=== PATIENT | male | born 1985 | race Caucasian/White ===

== ENCOUNTER 2022-10-03 03:24 | Inpatient (IN) | payer MEDICAID ==
[~2022-10-03] VITALS: Ht 175.3 cm; Wt 122.5 kg
[2022-10-03 03:30] VITALS: BP 125/88
--- NOTE | 2022-10-03 03:32 | NUR ---
to bed 2
--- NOTE | 2022-10-03 03:40 | NUR ---
Patient resting in bed, A/Ox4, chest rise and fall symmetrical, no s/s of distress, patient on monitor.
[2022-10-03] MEDS ORDERED: ENOXAPARIN 100 MG/ML SYR SUBQ ONE (03:55)
[2022-10-03] MEDS ORDERED: ASPIRIN 325 MG TAB PO ONE (03:55)
[2022-10-03] MEDS ORDERED: NITROGLYCERIN 2% 1 GM PKT TP ONE (03:55)
[2022-10-03] MEDS ORDERED: ONDANSETRON 4 MG/2 ML VIAL IVP ONE (03:55)
[2022-10-03] MEDS ORDERED: MORPHINE SULFATE 4 MG/ML SYR IVP ONE (03:55)
[2022-10-03] MEDS ORDERED: METOPROLOL 5 MG/5 ML VIAL IVP ONE (03:55)
--- NOTE | 2022-10-03 05:12 | NUR ---
Patient resting in bed, A/Ox4, chest rise and fall symmetrical, no s/s of distress, patient on monitor.
[2022-10-03] MEDS ORDERED: APIX5TAB PO (05:58)
[2022-10-03] MEDS ORDERED: PRON INH (05:58)
[2022-10-03] MEDS ORDERED: SYN.05 PO (05:58)
[2022-10-03] MEDS ORDERED: ACET-8905 PO (05:58)
[2022-10-03] MEDS ORDERED: SULF-58 PO (05:58)
[2022-10-03] MEDS ORDERED: ATOR20TA PO (05:58)
[2022-10-03] MEDS ORDERED: POTA10TA70 PO (05:58)
[2022-10-03] MEDS ORDERED: FURO-570 PO (05:58)
[2022-10-03] MEDS ORDERED: BUDE1AER2 IH (05:58)
[2022-10-03] MEDS ORDERED: DAPA10TA PO (05:58)
--- NOTE | 2022-10-03 05:59 | NUR ---
BELONGINGS LIST DONE.
--- NOTE | 2022-10-03 06:00 | NUR ---
Patient resting in bed, A/Ox4, chest rise and fall symmetrical, no c/o pain or s/s of distress, patient on monitor
[2022-10-03 06:50] LABS: BASOPHILS # (AUTO) 0.2 K/uL (0.00-0.22); EOSINOPHILS # (AUTO) 0.7 K/uL (0-0.4); EOSINOPHILS % (AUTO) 4.6 % (0.0-4.0); HEMATOCRIT 39.5 % (36-52); HEMOGLOBIN 12.6 g/dL (12.0-18.0); LYMPHOCYTES # (AUTO) 3.6 K/uL (2.0-11.5); LYMPHOCYTES % (AUTO) 22.3 % (20.5-51.1); MEAN CORPUSCULAR HEMOGLOBIN 23 pg (27-31); MEAN CORPUSCULAR HGB CONC 32 g/dL (33-37); MEAN CORPUSCULAR VOLUME 72.3 fL (80-94); MONOCYTES # (AUTO) 1.4 K/uL (0.8-1.0); MONOCYTES % (AUTO) 8.5 % (1.7-9.3); NEUTROPHILS # (AUTO) 10.2 K/uL (1.8-7.7); NEUTROPHILS % (AUTO) 63.6 % (42.2-75.2); PLATELET COUNT (AUTO) 362 K/uL (140-450); RED BLOOD CELL COUNT(AUTO) 5.46 MIL/uL (4.20-6.10); RED CELL DISTRIBUTION WIDTH 19.8 % (11.6-13.7)
[2022-10-03 07:03] LABS: ALBUMIN 3.2 g/dL (3.4-5.0); ANION GAP 15.4 (8-16); CARBON DIOXIDE 21.7 mmol/L (21-32); CREATININE 1.1 mg/dL (0.6-1.3); POTASSIUM 4.1 mmol/L (3.5-5.1); TOTAL BILIRUBIN 0.7 mg/dL (0.0-1.0)
[2022-10-03 07:24] LABS: BARBITURATE, URINE NEGATIVE ng/ml (NEG <=200); BENZODIAZEPINE, URINE NEGATIVE ng/mL (NEG <=200); CANNABINOID, URINE NEGATIVE ng/mL (NEG <=50); COCAINE, URINE NEGATIVE ng/mL (NEG <=300); OPIATE, URINE POSITIVE ng/mL (NEG <=2000); PHENCYCLIDINE SCREEN,URINE NEGATIVE ng/mL (NEG <=25)
--- NOTE | 2022-10-03 07:27 | NUR ---
Received report from Kevin. LINDO. Assumed care at this time.
--- NOTE | 2022-10-03 07:29 | NUR ---
Change of shift report given to AM shift nurse Christiano LINDO. AM shift nurse Christiano RN verbalized understanding of report, no further questions.
[2022-10-03] MEDS ORDERED: POTASSIUM CHLORIDE 10 MEQ TABER PO PRN (09:15)
[2022-10-03] MEDS ORDERED: FUROSEMIDE 40 MG TAB PO SCH (09:15)
[2022-10-03] MEDS ORDERED: HYDROcodone/APAP 7.5/325 MG 1 TAB PO PRN (09:15)
[2022-10-03] MEDS ORDERED: ONDANSETRON 4 MG/2 ML VIAL IM/IVP PRN (09:15)
[2022-10-03] MEDS ORDERED: FUROSEMIDE 20 MG/2 ML VIAL IVP SCH (09:15)
[2022-10-03] MEDS ORDERED: guaiFENesin DM 200/20 MG-10 ML 10 ML UDC PO PRN (09:15)
[2022-10-03] MEDS ORDERED: ZOLPIDEM 5 MG TAB PO PRN (09:15)
[2022-10-03] MEDS ORDERED: DEXTROSE 50% 50 ML SYR IVP PRN (09:15)
[2022-10-03] MEDS ORDERED: ACETAMINOPHEN 325 MG TAB PO PRN (09:15)
[2022-10-03] MEDS ORDERED: LEVOTHYROXINE 0.05 MG TAB PO SCH (09:15)
[2022-10-03] MEDS ORDERED: DOCUSATE SODIUM 100 MG GELCAP PO PRN (09:15)
[2022-10-03] MEDS: POTASSIUM CHLORIDE 10 MEQ TABER PO SCH (09:50)
[2022-10-03] MEDS: ATORVASTATIN 20 MG TAB PO SCH (09:52)
[2022-10-03 09:54] LABS: CHOL/HDL RATIO 4.3 (1-4.5); FREE T4 (FREE THYROXINE) 1.16 ng/dL (0.76-1.46); MAGNESIUM 2.1 mg/dL (1.8-2.4); PHOSPHORUS 4.9 mg/dL (2.5-4.9); THYROID STIMULATING HORMONE 16.65 uIU/mL (0.34-3.74)
[2022-10-03 10:00] VITALS: BP 125/85
--- NOTE | 2022-10-03 10:00 | NUR ---
PT TRANSPORTED FROM ER TO MST UNIT VIA GURNEY BY BELGICA CAMPBELL. PT AWAKE, ABLE TO MAKE NEEDS KNOWN. AMBULATORY. ATTACHED TO NUCLEAR PHYSICS TEACHER. RESPIRATIONS EVEN AND UNLABORED ON RA. PT DENIES PAIN BUT STATED THAT HE FELT BLOATED. V/S WAS TAKEN. MRSA SWAB DONE. PT ORIENTED TO ROOM , UNIT AND ROUTINE. URINAL WAS GIVEN. INITIAL ASSESSMENT WAS DONE. NOTED OPEN WOUND ON RIGHT ABDOMEN, PHOTO TAKEN AND MEASURED. CALL LIGHT WITHIN REACH. SAFETY PRECAUTIONS IN PLACE.
--- NOTE | 2022-10-03 10:00 | NUR ---
Patient's Plan of Care was discussed and reviewed with DRILL OPERATOR: KECIA MUSTAFA
--- NOTE | 2022-10-03 10:00 | NUR ---
Patient will be admitted to care of Dr. Khan. Admited to TELE. Will go to room 112A. Belongings list completed. Report to BELGICA Wyatt.
[2022-10-03 10:02] LABS: PROTHROMBIN TIME 12.3 secs (10.8-13.4)
--- NOTE | 2022-10-03 10:40 | NUR ---
IV ABX ADMINISTERED BY BELGICA LA. NO ADVERSE REACTION NOTED.
[2022-10-03 10:44] LABS: APPEARANCE,URINE CLEAR (CLEAR); BILIRUBIN,URINE NEGATIVE (NEGATIVE); BLOOD, URINE 2+ (NEGATIVE); COLOR,URINE YELLOW (YELLOW); LEUKOCYTE ESTERASE ,URINE NEGATIVE (NEGATIVE); NITRITE, URINE NEGATIVE (NEGATIVE); UGLUCOSE 3+ (NEGATIVE)
[2022-10-03 11:00] LABS: RBC,URINE 0-5 /HPF (0-5)
[2022-10-03] MEDS: BLOOD GLUCOSE MONITORING 1 DEV DEV FS SCH ×3 (12:18→21:44)
[2022-10-03] MEDS: INSULIN LISPRO SLIDING SCALE 100 UNITS/ML VIAL SUBQ PRN (12:18)
--- NOTE | 2022-10-03 12:20 | NUR ---
BLOOD SUGAR CHECK DONE. SLIDING SCALE INSULIN ADMINISTERED.
--- NOTE | 2022-10-03 14:17 | NUR ---
PT HOME MED ADDY BROUGHT TO PHARMACY. STICKER ATTACHED TO PT'S CHART.
[2022-10-03 16:00] VITALS: BP 123/94
[2022-10-03] MEDS: NITROGLYCERIN 0.4 MG TAB SL PRN ×3 (16:11→16:22)
--- NOTE | 2022-10-03 16:14 | NUR ---
ECHO DONE. EJ<10% PER CLASSIFICATIONS OFFICER CC/CM. DR OLVERA AND PIETER MADE AWARE.
--- NOTE | 2022-10-03 16:27 | NUR ---
PT COMPLAINED OF 9/10 CHEST PAIN, NON-RADIATING. UNRELIEVED BY NITROGLYCERIN 3X. MD WAS INFORMED. AWAITING FOR RESPONSE. V/S STABLE. PT ALERT, VERBALLY RESPONSIVE.
[2022-10-03] MEDS ORDERED: MORPHINE SULFATE 4 MG/ML SYR IVP SCH (16:40)
--- NOTE | 2022-10-03 16:45 | NUR ---
RECEIVED ORDER FROM DR STAPLETON. REPEAT TROPONIN AND ONE TIME MORPHINE. NO INSULIN COVERAGE FOR BS 93.
[2022-10-03] MEDS: LEVOTHYROXINE 0.05 MG TAB PO SCH (17:41)
[2022-10-03] MEDS: FUROSEMIDE 40 MG/4 ML VIAL IVP SCH (17:41)
--- NOTE | 2022-10-03 17:42 | NUR ---
PT STILL COMPLAINING OF CHEST PAIN 05/16. PRN MORPHINE GIVEN BY BELGICA POE ORDERED. Addendum: 10/03/22 at 1816 by Edmundo JENNINGSN V/S WITHIN NORMAL LIMITS.
--- NOTE | 2022-10-03 19:34 | NUR ---
RECEIVED ENDORSEMENT FROM DAY SHIFT NURSE FOR CONTINUITY OF CARE. PT IS AWAKE, ALERT AND VERBALLY RESPONSIVE. IS AT BED SITE. PT IS ON CARDIAC DIET. IV SALINE LOCK IS INTACT AND IV SITE IS ON RIGHT AC 18G, INTACT AND PATENT. PT DENIES OF PAIN AT THIS TIME.
--- NOTE | 2022-10-03 19:35 | NUR ---
ENDORSED PT TO BELGICA SZYMANSKI FOR CONTINUITY OF CARE. ALL NEEDS MET THROUGHOUT SHIFT. PT IN STABLE CONDITION.
[2022-10-03 20:00] VITALS: BP 119/82
[2022-10-03] MEDS ORDERED: METOPROLOL 25 MG TAB PO SCH (21:00)
--- NOTE | 2022-10-03 21:44 | NUR ---
BLOOD SUGAR CHECKED = 145, NO SLIDING SCALE COVERAGE, NO INSULIN NEEDED.
[2022-10-03] MEDS: APIXABAN 2.5 MG TAB PO SCH (21:47)
--- NOTE | 2022-10-03 22:20 | NUR ---
PT COMPLAINTS OF CHEST PAIN AT MIDDLE OF THE CHEST AND STOMACH PAIN 05/16. PT ALSO COMPLAINTS OF STOMACH BLOATED. REPORTED TO DR. PIETER MD ORDER MORPHINE IVP 2MG Q4H PRN. DR. STAPLETON ALSO STATED WILL ASSESS FOR STOMACH BLOATED TOMORROW AM.
--- NOTE | 2022-10-03 22:45 | NUR ---
PT IS SLEEPING, NO FACIAL GRIMACING AT THIS TIME.
--- NOTE | 2022-10-03 23:30 | NUR ---
CHECK VITAL SIGNS WHILE PT CLOSING HIS EYES. PT DENIES OF PAIN, NO PAIN MEDICATION ADMINISTERED.
[2022-10-04] VITALS: BP_SYST 119; BP_SYST 125; BP_DIAS 76; BP_DIAS 82
[2022-10-04 04:00] VITALS: BP 113/83
[2022-10-04] MEDS: MORPHINE SULFATE 2 MG/ML SYR IVP PRN ×4 (04:15→21:40)
[2022-10-04] MEDS: LEVOTHYROXINE 0.05 MG TAB PO SCH (06:30)
[2022-10-04 06:38] LABS: BASOPHILS # (AUTO) 0.2 K/uL (0.00-0.22); BASOPHILS % (AUTO) 1.6 % (0.0-2.0); EOSINOPHILS # (AUTO) 0.5 K/uL (0-0.4); HEMOGLOBIN 11.5 g/dL (12.0-18.0); LYMPHOCYTES # (AUTO) 2.6 K/uL (2.0-11.5); LYMPHOCYTES % (AUTO) 20.4 % (20.5-51.1); MEAN CORPUSCULAR HEMOGLOBIN 23 pg (27-31); MEAN CORPUSCULAR HGB CONC 32 g/dL (33-37); MEAN CORPUSCULAR VOLUME 70.6 fL (80-94); MONOCYTES % (AUTO) 8.1 % (1.7-9.3); NEUTROPHILS # (AUTO) 8.4 K/uL (1.8-7.7); NEUTROPHILS % (AUTO) 65.9 % (42.2-75.2); PLATELET COUNT (AUTO) 322 K/uL (140-450); RED BLOOD CELL COUNT(AUTO) 5.09 MIL/uL (4.20-6.10); RED CELL DISTRIBUTION WIDTH 19.6 % (11.6-13.7); WHITE BLOOD COUNT (AUTO) 12.7 K/uL (4.8-10.8)
[2022-10-04 07:13] LABS: ANION GAP 14.4 (8-16); CARBON DIOXIDE 22.2 mmol/L (21-32); CREATININE 1.1 mg/dL (0.6-1.3); POTASSIUM 3.6 mmol/L (3.5-5.1)
--- NOTE | 2022-10-04 07:45 | NUR ---
BLOOD SUGAR CHECKED = 106, NO SLIDING SCALE COVERAGE, NO INSULIN NEEDED.
[2022-10-04] MEDS: BLOOD GLUCOSE MONITORING 1 DEV DEV FS SCH ×4 (07:52→21:10)
[2022-10-04 08:00] VITALS: BP 121/82
[2022-10-04] MEDS ORDERED: NON-FORMULARY ITEM (Dapagliflozin Propanediol (Farxiga) 10 MG) PO SCH (09:00)
[2022-10-04 09:06] LABS: T4 (THYROXINE) 7.3 ug/dL (4.5-12.0)
--- NOTE | 2022-10-04 09:23 | NUR ---
PATIENT HAS BEEN SCREENED AND CATEGORIZED HIGH NUTRITION RISK. PATIENT WILL BE SEEN WITHIN 1-2 DAYS OF ADMISSION. 10/03/22-10/05/[address]
[2022-10-04] MEDS: FUROSEMIDE 40 MG/4 ML VIAL IVP SCH ×2 (09:31→17:17)
[2022-10-04] MEDS: ECOTRIN 81 MG TABEC PO SCH (09:32)
[2022-10-04] MEDS: ATORVASTATIN 20 MG TAB PO SCH (09:32)
[2022-10-04] MEDS: APIXABAN 2.5 MG TAB PO SCH ×2 (09:33→21:13)
[2022-10-04] MEDS: FARXIGA 10 MG PO SCH (09:34)
[2022-10-04] MEDS: POTASSIUM CHLORIDE 10 MEQ TABER PO SCH (09:34)
[2022-10-04] MEDS: PANTOPRAZOLE 40 MG TABEC PO SCH (09:35)
[2022-10-04] MEDS: INSULIN LISPRO SLIDING SCALE 100 UNITS/ML VIAL SUBQ PRN (11:21)
[2022-10-04 12:00] VITALS: BP 124/79
[2022-10-04 16:00] VITALS: BP 119/76
--- NOTE | 2022-10-04 19:14 | NUR ---
10/04/22 RD INITIAL ASSESSMENT COMPLETED. PLEASE REFER TO NUTRITION ASSESSMENT UNDER CARE ACTIVITY FOR ESTIMATED NUTRITIONAL NEEDS. 1.CONTINUE CARDIAC DIET TOLERATED 2.RECOMMEND PARAG BID + GLUCERNA TO PROMOTE WOUND HEALING. 3.MONITOR FOR WOUND HEALING. 4.RD TO FOLLOW-UP 3-5 DAYS, MODERATE RISK MIRTHA ARREOLA RD
--- NOTE | 2022-10-04 19:45 | NUR ---
RECEIVED ENDORSEMENT FROM DAY SHIFT NURSE THAT PT IS STILL PENDING FOR ECHO. PT IS ON BED SLEEPING, IV SITE ON RIGHT AC IS INTACT AND PATENT. DINNER IS 100% CONSUMED.
[2022-10-04 20:00] VITALS: BP 122/91
--- NOTE | 2022-10-04 21:10 | NUR ---
BLOOD SUGAR CHECKED = 109, NO SLIDING SCALE COVERAGE, NO INSULIN NEEDED.
--- NOTE | 2022-10-04 21:40 | NUR ---
PT COMPLAINTS OF ABDOMINAL PAIN OF 8/10 AND SLIGHT PAIN ON MIDDLE OF THE CHEST. PT ALSO VERBALIZED MODERATE PAIN ON SMALL WOUND ON THE RIGHT STOMACH AREA, PAIN MEDICATION MORPHINE ADMINISTERED ORDERED.
[2022-10-04] MEDS: NITROGLYCERIN 0.4 MG TAB SL PRN (23:50)
--- NOTE | 2022-10-04 23:50 | NUR ---
PT COMPLAINTS OF CHEST PAIN (TIGHT) AT THE MIDDLE OF THE CHEST, PT ALSO COMPLAINTS OF HEADACHE. NITROGLYCERIN ADMINISTERED ORDERED.
--- NOTE | 2022-10-04 23:55 | NUR ---
PT COMPLAINTS CHEST PAIN STILL THE SAME AND DOES NOT RELIEF WITH NITROGLYCERIN. ADMINISTERED 2ND NITRO.
[2022-10-05] VITALS: BP 123/73
--- NOTE | 2022-10-05 | NUR ---
CHEST PAIN DOES NOT RELIEF WITH X3 NITROGLYCERIN.
--- NOTE | 2022-10-05 | NUR ---
PT VERBALIZED CHEST PAIN STILL THE SAME, NOT RELIEF.
--- NOTE | 2022-10-05 00:18 | NUR ---
REPORTED TO DR. BOWERS ABOUT PT CONDITION. DR. BOWERS ORDER STAT TROP/EKG/CXR AND GIVE O2. O2 INHALATION ADMINISTERED AT 2 LPM. VITAL SIGNS TAKEN: B/P-112/61, P-118.
--- NOTE | 2022-10-05 00:57 | NUR ---
PT IS AWAKE & ALERT, ABLE TO VERBALIZE NEEDS. PT IS TRYING TO GET SOME SLEEPS.
[2022-10-05] MEDS: MORPHINE SULFATE 2 MG/ML SYR IVP PRN ×4 (01:46→18:39)
--- NOTE | 2022-10-05 01:46 | NUR ---
PT VERBALIZED WITH CHEST PAIN 9/10, FACIAL GRIMACING PRESENT. ADMINISTERED PAIN MEDICATION MORPHINE ORDERED.
--- NOTE | 2022-10-05 02:01 | NUR ---
SENT EKG, TROPONIN & CHEST X-RAY TO DR. ELISSA MD ADVISED TO HAVE CONSULT WITH DR. OLVERA.
--- NOTE | 2022-10-05 02:42 | NUR ---
PLACED CARDIO CONSULTATION WITH DR. Armand OLVERA.
--- NOTE | 2022-10-05 02:58 | NUR ---
PT WOKE UP AND STATED CHEST PAIN FEELS BETTER.
[2022-10-05 04:00] VITALS: BP 141/91
[2022-10-05] MEDS: LEVOTHYROXINE 0.05 MG TAB PO SCH (06:18)
--- NOTE | 2022-10-05 07:30 | NUR ---
BLOOD SUGAR CHECKED = 112, NO COVERAGE.
[2022-10-05] MEDS: BLOOD GLUCOSE MONITORING 1 DEV DEV FS SCH ×4 (07:57→20:39)
[2022-10-05 08:03] LABS: BASOPHILS # (AUTO) 0.2 K/uL (0.00-0.22); BASOPHILS % (AUTO) 1.4 % (0.0-2.0); EOSINOPHILS # (AUTO) 1.1 K/uL (0-0.4); HEMATOCRIT 37.2 % (36-52); HEMOGLOBIN 11.9 g/dL (12.0-18.0); LYMPHOCYTES % (AUTO) 25.3 % (20.5-51.1); MEAN CORPUSCULAR HEMOGLOBIN 23 pg (27-31); MEAN CORPUSCULAR HGB CONC 32 g/dL (33-37); MEAN CORPUSCULAR VOLUME 71.4 fL (80-94); MONOCYTES # (AUTO) 1.1 K/uL (0.8-1.0); MONOCYTES % (AUTO) 8.8 % (1.7-9.3); NEUTROPHILS # (AUTO) 6.7 K/uL (1.8-7.7); NEUTROPHILS % (AUTO) 55.5 % (42.2-75.2); PLATELET COUNT (AUTO) 340 K/uL (140-450); RED CELL DISTRIBUTION WIDTH 18.9 % (11.6-13.7)
[2022-10-05 08:13] LABS: ANION GAP 13.4 (8-16); CARBON DIOXIDE 25.5 mmol/L (21-32); POTASSIUM 3.9 mmol/L (3.5-5.1)
[2022-10-05] MEDS: ATORVASTATIN 20 MG TAB PO SCH (09:07)
[2022-10-05] MEDS: ECOTRIN 81 MG TABEC PO SCH (09:07)
[2022-10-05] MEDS: PANTOPRAZOLE 40 MG TABEC PO SCH (09:07)
[2022-10-05] MEDS: POTASSIUM CHLORIDE 10 MEQ TABER PO SCH (09:07)
[2022-10-05] MEDS: FUROSEMIDE 40 MG/4 ML VIAL IVP SCH ×2 (09:08→18:39)
--- NOTE | 2022-10-05 09:16 | NUR ---
ELIQUS WAS ADMINISTERED PER MD ORDER, [facility] NOT ACCEPTING MEDICATION. CALLED PHARMACY AND INFORMED THEM OF ADMINISTRATION. ALL CHECKS COMPLETED COMPARED TO [facility], WITH WIRE SPOOLER.
[2022-10-05] MEDS: FARXIGA 10 MG PO SCH (09:29)
--- NOTE | 2022-10-05 10:19 | NUR ---
SKIN ASSESSMENT DONE. OLD SURGICAL SCAT TO MID CHEST, DRY AND CLEAN. RUQ ABDOMINAL WALL A DRY THIN SCAB [id number], FAY-WOUND DRY INTACT, NO ERYTHEMA, NO SWELLING, NO PAIN 0/10. POC DISCUSSED WITH PT. PT. VERBALIZES UNDERSTANDING.POC DISCUSSED WITH PRIMARY RN YOSVANY -CLEANSE RUQ ABDOMINAL WITH NS, PAT DRY, APPLY SILVASORB GEL AND COVER WITH A DRY DRESSING DAILY AND PRN IF SOILING. Addendum: 10/05/22 at 1203 by Dayanna Ruiz RN (Grace) PT. WITH LOW ELIEZER SCALE AT MODERATE TO HIGH RISK, CONTINUE TO FOLLOW PRESSURE INJURY PREVENTION INTERVENTIONS. -POSITIONING: TURN AND REPOSITION PATIENT Q 2H OR SOONER USE PILLOWS TO KEEP BONY PROMINENCES FROM DIRECT CONTACT WITH SURFACES USE REPOSITIONING WEDGES TO PROVIDE 30-DEGREE ANGLE FOR SIDE LYING POSITIONS OFFLOADING OR FOAM DRESSING TO ALL TUBING TO PREVENT MEDICAL DEVICES RELATED PRESSURE INJURY -RE-EVALUATING AND MANAGING INCONTINENCE MONITOR SKIN CONDITION DURING POSITION CHANGE DO NOT MASSAGE REDNESS, BONY PROMINENCES FREQUENT FAY-CARE AND PROVIDE BARRIER CREAMS PRN IF SOILING MOISTURE CONTROL BY OFFER BED EDWARDS/URINAL /ABSORBENT PAD TO WICK AND HOLD MOISTURE KEEP SKIN DRY AND PROTECT FROM FRICTION -MANAGE FRICTION/SHEAR/MOBILITY KEEP HOB AT THE LOWEST LEVEL OF ELEVATION NO MORE THAN 30 DEGREE UNLESS OTHERWISE CONTRAINDICATED USE LIFT SHEET OR TRANSFER DEVICE TO MOVE PATIENT AND PREVENT LATERAL SHEER. PROTECT HEELS, ELBOWS BONY PROMINENCES WITH SKIN BERRIES OR FOAM DRESSING IF EXPOSED TO FRICTION OFFLOAD BILATERAL HEELS BY PLACING PILLOWS UNDER CALVES AT ALL TIMES, UNLESS OTHERWISE CONTRAINDICATED -PRESSURE REDISTRIBUTION SURFACE THERAPY CASSIE ISOFLEX MATTRESS -NUTRITION: PLEASE FOLLOW RD RECOMMENDATIONS AND OFFER NUTRITION SUPPLEMENTS IF ORDERED. PLEASE CONTACT WOUND CARE NURSE FOR ANY QUESTION AND CHANGE OF WOUND CONDITION.
[2022-10-05 12:00] VITALS: BP 112/78
[2022-10-05] MEDS ORDERED: FURO-570 PO (12:50)
[2022-10-05] MEDS ORDERED: ASPI-1856 PO (12:50)
[2022-10-05] MEDS ORDERED: POTA10TA70 PO (12:50)
[2022-10-05] MEDS ORDERED: SYN.05 PO (12:50)
[2022-10-05] MEDS: GAUZE TP SCH (13:00)
--- NOTE | 2022-10-05 14:30 | NUR ---
DR OLVERA GAVE CARDIAC CLEARANCE. NOTIFIED PRIMARY RN, RN STATED PT IS UNABLE TO AMBULATE. NO PT EVAL COMPLETED ON PT. NOTIFIED MD REGARDING THIS, MD CANCELED DC ORDER AND ORDER PT EVAL. ORDERS PLACED, PT MADE AWARE.
[2022-10-05] MEDS: INSULIN LISPRO SLIDING SCALE 100 UNITS/ML VIAL SUBQ PRN ×2 (14:51→20:48)
[2022-10-05 16:00] VITALS: BP 141/91
--- NOTE | 2022-10-05 19:35 | NUR ---
RECEIVED PATIENT LYING ON THE BED, IS ALERT, AWAKE AND ORIENTED. IV SITE ON RIGHT AC, G18, PATENT AND INTACT. CALL LIGHT WITHIN REACH.
[2022-10-05 20:00] VITALS: BP 115/83
[2022-10-05] MEDS: carvediloL 6.25 MG TAB PO SCH (20:52)
[2022-10-05] MEDS: APIXABAN 2.5 MG TAB PO SCH (20:56)
--- NOTE | 2022-10-05 21:00 | NUR ---
SCHEDULED MEDICATIONS GIVEN ORDERED.
[2022-10-06] VITALS: BP 110/71
--- NOTE | 2022-10-06 02:10 | NUR ---
CHECKED ON PATIENT, PATIENT IS ASLEEP, BREATHING EVEN AND NON LABORED, NO SIGNS OF PAIN NOTED, CALL LIGHT WITHIN REACH.
[2022-10-06 04:00] VITALS: BP 102/65
[2022-10-06] MEDS: MORPHINE SULFATE 2 MG/ML SYR IVP PRN ×3 (04:55→22:28)
--- NOTE | 2022-10-06 04:55 | NUR ---
PRN MORPHINE GIVEN FOR C/O 9/10 CHEST PAIN. BP 110/70.
[2022-10-06] MEDS: LEVOTHYROXINE 0.05 MG TAB PO SCH (05:36)
[2022-10-06] MEDS: BLOOD GLUCOSE MONITORING 1 DEV DEV FS SCH ×4 (06:30→20:59)
--- NOTE | 2022-10-06 06:30 | NUR ---
BLOOD SUGAR CHECKED, 108 MG/DL, NO COVERAGE.
--- NOTE | 2022-10-06 07:23 | NUR ---
ENDORSED PATIENT TO DAY NURSE FOR CONTINUITY OF CARE. NEEDS MET THROUGHOUT THE SHIFT. PATIENT IN STABLE CONDITION.
[2022-10-06 07:25] LABS: BASOPHILS # (AUTO) 0.2 K/uL (0.00-0.22); BASOPHILS % (AUTO) 1.2 % (0.0-2.0); EOSINOPHILS # (AUTO) 0.8 K/uL (0-0.4); EOSINOPHILS % (AUTO) 6.1 % (0.0-4.0); HEMATOCRIT 37.3 % (36-52); HEMOGLOBIN 12.1 g/dL (12.0-18.0); LYMPHOCYTES # (AUTO) 2.2 K/uL (2.0-11.5); LYMPHOCYTES % (AUTO) 17.2 % (20.5-51.1); MEAN CORPUSCULAR HEMOGLOBIN 23 pg (27-31); MEAN CORPUSCULAR HGB CONC 33 g/dL (33-37); MEAN CORPUSCULAR VOLUME 70.7 fL (80-94); MONOCYTES # (AUTO) 1.1 K/uL (0.8-1.0); MONOCYTES % (AUTO) 8.6 % (1.7-9.3); NEUTROPHILS # (AUTO) 8.6 K/uL (1.8-7.7); NEUTROPHILS % (AUTO) 66.9 % (42.2-75.2); PLATELET COUNT (AUTO) 318 K/uL (140-450); RED BLOOD CELL COUNT(AUTO) 5.28 MIL/uL (4.20-6.10); RED CELL DISTRIBUTION WIDTH 18.6 % (11.6-13.7); WHITE BLOOD COUNT (AUTO) 12.8 K/uL (4.8-10.8)
[2022-10-06 07:38] LABS: ANION GAP 12.7 (8-16); CARBON DIOXIDE 26.8 mmol/L (21-32); CREATININE 0.9 mg/dL (0.6-1.3); POTASSIUM 3.5 mmol/L (3.5-5.1)
[2022-10-06 08:00] VITALS: BP 115/64
[2022-10-06] MEDS: POTASSIUM CHLORIDE 10 MEQ TABER PO SCH (09:19)
[2022-10-06] MEDS: FUROSEMIDE 40 MG/4 ML VIAL IVP SCH ×2 (09:20→17:36)
[2022-10-06] MEDS: PANTOPRAZOLE 40 MG TABEC PO SCH (09:20)
[2022-10-06] MEDS: lisinopriL 5 MG TAB PO SCH (09:20)
[2022-10-06] MEDS: ECOTRIN 81 MG TABEC PO SCH (09:20)
[2022-10-06] MEDS: APIXABAN 2.5 MG TAB PO SCH ×2 (09:23→21:01)
[2022-10-06] MEDS: ATORVASTATIN 20 MG TAB PO SCH (09:26)
[2022-10-06] MEDS: carvediloL 6.25 MG TAB PO SCH ×2 (09:26→21:00)
[2022-10-06] MEDS: FARXIGA 10 MG PO SCH (09:27)
[2022-10-06 12:00] VITALS: BP 120/52
[2022-10-06] MEDS: GAUZE TP SCH (13:00)
--- NOTE | 2022-10-06 14:32 | NUR ---
DC PLANNING SW MET WITH PT AT BEDSIDE TO COMPLETE ASSESSMENT. PT ALERT AND ORIENTED AND ABLE TO PROVIDE ALL OF HIS OWN INFORMATION. PT REPORTS RENTING A ROOM IN A TWO STORY HOME AT THE ADDRESS LISTED ON FILE. PT IDENTIFIED SHERIE PALAFOX, EMERGENCY CONTACT AND DECLINED TO ADD AN ADDITIONAL EC. PT REPORTS LAST VISIT WITH PCP 2 MONTHS AGO. PT REPORTS MEDICATION COMPLIANCE AND REPORTS RECEIVING MEDICATION FROM [facility] ON WILL IN [place], WHEN NEEDED. PT REPORTS UTILIZING FWW TO AMBULATE, PT REPORTS COMPLETING ADL'S INDEPENDENTLY. PT REPORTS MENTAL HEALTH HX OF BIPOLAR DO WHICH HE REPORTS IS SELF MANAGED AND WELL MANAGED. SW OFFERED TO PROVIDE PT WITH MENTAL HEALTH RESOURCES WHICH PT DECLINED. PT DENIES SUBSTANCE USE DESPITE TESTING POSITIVE FOR OPIATES AND AMPHETAMINES AT ADMISSION. PT DECLINED SUBSTANCE USE RESOURCES OFFERED BY [employer]. PT REPORTS HX OF TYPE 2 DIABETES WHICH HE REPORTS IS WELL MANAGED. PT DENIES HX OF DIALYSIS TX, HH SERVICES, SNF PLACEMENT. PT REPORTS DC PLAN IS TO RETURN HOME WIHT HIS GF PROVIDING TRANSPORTATION WHEN MEDICALLY STABLE. SW INQUIRED ON RESOURCES NEEDED, PT DECLINED. Addendum: 10/06/22 at 1434 by Robert Morales SS Amended: Links added.
[2022-10-06 16:00] VITALS: BP 102/65
--- NOTE | 2022-10-06 18:40 | NUR ---
the physical therapy saw the patient . [facility] . due to the bathroom and kitchen of the patient house is in the second floor . the patient also lives alone will call the md and recommended to dagoberto hilton
--- NOTE | 2022-10-06 19:15 | NUR ---
RECEIVED REPORT FROM DAY NURSE FOR CONTINUITY OF CARE. PATIENT IS AWAKE, ALERT AND ORIENTED, WATCHING TV. CALL LIGHT WITHIN REACH.
[2022-10-06 20:00] VITALS: BP 102/67
--- NOTE | 2022-10-06 21:05 | NUR ---
SCHEDULED MEDICATIONS GIVEN ORDERED. ALL SAFETY MEASURES IN PLACE.
--- NOTE | 2022-10-06 22:28 | NUR ---
PATIENT C/O 9/10 CHEST PAIN, INTERMITTENT PAIN, PRN MORPHINE GIVEN ORDERED. BP 101/70. P 103. WILL CONTINUE TO MONITOR THE PATIENT.
[2022-10-07] VITALS: BP 101/66
[2022-10-07 04:00] VITALS: BP 106/72
[2022-10-07] MEDS: LEVOTHYROXINE 0.05 MG TAB PO SCH (05:53)
--- NOTE | 2022-10-07 06:30 | NUR ---
PATIENT'S BLOOD SUGAR IS 115 MG/DL, NO COVERAGE NEEDED. NO SIGNS OF DISTRESS NOTED, NO C/O PAIN AT THIS TIME. ALL SAFETY MEASURES IN PLACE, CALL LIGHT WITHIN REACH.
[2022-10-07] MEDS: BLOOD GLUCOSE MONITORING 1 DEV DEV FS SCH ×2 (06:34→11:30)
[2022-10-07 07:12] LABS: BASOPHILS # (AUTO) 0.1 K/uL (0.00-0.22); BASOPHILS % (AUTO) 0.8 % (0.0-2.0); EOSINOPHILS # (AUTO) 0.8 K/uL (0-0.4); EOSINOPHILS % (AUTO) 7.1 % (0.0-4.0); HEMOGLOBIN 12.3 g/dL (12.0-18.0); LYMPHOCYTES # (AUTO) 2.8 K/uL (2.0-11.5); LYMPHOCYTES % (AUTO) 25.2 % (20.5-51.1); MEAN CORPUSCULAR HEMOGLOBIN 23 pg (27-31); MEAN CORPUSCULAR HGB CONC 32 g/dL (33-37); MEAN CORPUSCULAR VOLUME 71.6 fL (80-94); MONOCYTES % (AUTO) 9.3 % (1.7-9.3); NEUTROPHILS # (AUTO) 6.3 K/uL (1.8-7.7); NEUTROPHILS % (AUTO) 57.6 % (42.2-75.2); PLATELET COUNT (AUTO) 343 K/uL (140-450); RED BLOOD CELL COUNT(AUTO) 5.31 MIL/uL (4.20-6.10); RED CELL DISTRIBUTION WIDTH 18.9 % (11.6-13.7)
--- NOTE | 2022-10-07 07:14 | NUR ---
PATIENT IN STABLE CONDITION, ENDORSED TO DAY NURSE FOR CONTINUITY OF CARE.
[2022-10-07 07:18] LABS: ANION GAP 13.1 (8-16); CARBON DIOXIDE 26.4 mmol/L (21-32); CREATININE 0.9 mg/dL (0.6-1.3); POTASSIUM 3.5 mmol/L (3.5-5.1)
[2022-10-07] MEDS: PANTOPRAZOLE 40 MG TABEC PO SCH (08:56)
[2022-10-07] MEDS: ATORVASTATIN 20 MG TAB PO SCH (08:56)
[2022-10-07] MEDS: ECOTRIN 81 MG TABEC PO SCH (08:56)
[2022-10-07] MEDS: lisinopriL 5 MG TAB PO SCH (08:56)
[2022-10-07] MEDS: POTASSIUM CHLORIDE 10 MEQ TABER PO SCH (08:56)
[2022-10-07] MEDS: carvediloL 6.25 MG TAB PO SCH (08:57)
[2022-10-07] MEDS: FUROSEMIDE 40 MG/4 ML VIAL IVP SCH (08:57)
[2022-10-07] MEDS: MORPHINE SULFATE 2 MG/ML SYR IVP PRN ×2 (08:58→12:53)
[2022-10-07] MEDS: FARXIGA 10 MG PO SCH (08:59)
[2022-10-07] MEDS: APIXABAN 2.5 MG TAB PO SCH (09:01)
[2022-10-07] MEDS: GAUZE TP SCH (12:53)
== END 2022-10-07 15:20 | disposition home or self-care (01) | DRG 720 ==
LOC: MED 03:24 → MTU 06:43
PROVIDERS: ADMIT Family Medicine; ATTEND Family Medicine
DX: A41.9 Sepsis, unspecified organism (principal); G92.8 Other toxic encephalopathy; I50.23 Acute on chronic systolic (congestive) heart failure; E44.1 Mild protein-calorie malnutrition; Z68.39 Body mass index [BMI] 39.0-39.9, adult; N39.0 Urinary tract infection, site not specified; I42.0 Dilated cardiomyopathy; I25.10 Atherosclerotic heart disease of native coronary artery without angina pectoris; E78.5 Hyperlipidemia, unspecified; Z20.822 Contact with and (suspected) exposure to COVID-19; E11.9 Type 2 diabetes mellitus without complications; E03.9 Hypothyroidism, unspecified; F11.10 Opioid abuse, uncomplicated; Z86.711 Personal history of pulmonary embolism; Z87.891 Personal history of nicotine dependence; I11.0 Hypertensive heart disease with heart failure; M94.0 Chondrocostal junction syndrome [Tietze]
CPT/HCPCS: 36415; 71045; 80048; 80053; 80305; 81001; 82150; 82948; 83036; 83690; 83735; 83880; 84100; 84436; 84439; 84443; 84479; 84484; 85025; 85610; 85730; 87081; 87086; 93005; 96372; 96374; 96375; 97116; 97163-GP; 99291; J0696; J1650; J1815; J1940; J2270; J2405; J3490; J7060; Q0092

== ENCOUNTER 2022-10-09 01:39 | Inpatient (IN) | payer MEDICAID ==
[~2022-10-09] VITALS: Ht 175.3 cm; Wt 104.3 kg
[~2022-10-09 01:39] MED LIST: ACET-8905 PO; APIX5TAB PO; ASPI-1856 PO; ATOR20TA PO; BUDE1AER2 IH; DAPA10TA PO; FURO-570 PO; POTA10TA70 PO; PRON INH; SULF-58 PO; SYN.05 PO
[2022-10-09 01:45] VITALS: BP 113/79
--- NOTE | 2022-10-09 01:45 | NUR ---
TO BED AMBULATORY
--- NOTE | 2022-10-09 01:57 | NUR ---
36 yo m bib self with c/c of 10/10 nonrad chest pressure x1day. +sob. pt reports he was just d/c from tele a few days ago, states he feels worse. denies taking medication for pain. states he has had 5 cardiac bypasses in the past. hx:copd, heart failure, bypass, asthma
[2022-10-09] MEDS ORDERED: NITROGLYCERIN 0.4 MG TAB SL ONE (02:15)
[2022-10-09] MEDS ORDERED: ASPIRIN 81 MG TAB.CHEW PO ONE (02:15)
[2022-10-09 02:31] LABS: BASOPHILS # (AUTO) 0.2 K/uL (0.00-0.22); BASOPHILS % (AUTO) 2.1 % (0.0-2.0); EOSINOPHILS # (AUTO) 0.5 K/uL (0-0.4); EOSINOPHILS % (AUTO) 5.5 % (0.0-4.0); HEMOGLOBIN 12.5 g/dL (12.0-18.0); LYMPHOCYTES # (AUTO) 2.5 K/uL (2.0-11.5); LYMPHOCYTES % (AUTO) 27.1 % (20.5-51.1); MEAN CORPUSCULAR HEMOGLOBIN 23 pg (27-31); MEAN CORPUSCULAR HGB CONC 32 g/dL (33-37); MEAN CORPUSCULAR VOLUME 72.3 fL (80-94); MONOCYTES # (AUTO) 0.7 K/uL (0.8-1.0); MONOCYTES % (AUTO) 7.7 % (1.7-9.3); NEUTROPHILS # (AUTO) 5.3 K/uL (1.8-7.7); NEUTROPHILS % (AUTO) 57.6 % (42.2-75.2); PLATELET COUNT (AUTO) 352 K/uL (140-450); RED BLOOD CELL COUNT(AUTO) 5.39 MIL/uL (4.20-6.10); RED CELL DISTRIBUTION WIDTH 19.3 % (11.6-13.7); WHITE BLOOD COUNT (AUTO) 9.3 K/uL (4.8-10.8)
--- NOTE | 2022-10-09 02:33 | NUR ---
XRAY AT BEDSIDE
--- NOTE | 2022-10-09 02:33 | NUR ---
rad at bedside
--- NOTE | 2022-10-09 02:41 | NUR ---
36YR OLD MALE BIB SELF C/O CP SOB AND ABD PAIN X1DAY. PT WAS SEEN IN ER A FEW DAYS FOR SAME SX. CP 8/10 PRESSURE NON RADIATING +SOB NO EDEMA NOTED. RESP EVEN AND UNLABORED. PT ON BEDSIDE MONITOR. HOB ELEVATED. ABD PAIN LOWER 8/10. +V/D PT IS A&OX4. NKDA DM COPD
[2022-10-09 02:54] LABS: ALBUMIN 3.1 g/dL (3.4-5.0); ANION GAP 10.6 (8-16); CARBON DIOXIDE 23.1 mmol/L (21-32); CREATININE 0.8 mg/dL (0.6-1.3); POTASSIUM 3.7 mmol/L (3.5-5.1); TOTAL BILIRUBIN 0.4 mg/dL (0.0-1.0)
--- NOTE | 2022-10-09 03:02 | NUR ---
PT STILL 8/10 AFTER NITRO. +KILPATRICK
[2022-10-09] MEDS ORDERED: MORPHINE SULFATE 4 MG/ML SYR IVP ONE ×4 (03:05→10:10)
--- NOTE | 2022-10-09 03:07 | NUR ---
BELONGINGS LIST DONE.
--- NOTE | 2022-10-09 03:21 | NUR ---
BP 99/63 HR 116, HOLD MORPHINE PER CHARLIE RICH D/T LOW BP. STATES HE WILL ORDER A DIFFERENT PAIN MEDICATION.
--- NOTE | 2022-10-09 03:22 | NUR ---
PT TO CT
[2022-10-09] MEDS ORDERED: KETOROLAC 15 MG/ML VIAL IVP ONE (03:25)
--- NOTE | 2022-10-09 03:57 | NUR ---
PT PAIN LEVEL 9/[address] RICH AT BEDSIDE
[2022-10-09] MEDS ORDERED: ALBUTEROL 0.083% 2.5 MG/3 ML NEBU INH ONE (04:00)
--- NOTE | 2022-10-09 04:10 | NUR ---
RT AT BEDSIDE
--- NOTE | 2022-10-09 04:20 | NUR ---
SECOND TROP DRAWN
--- NOTE | 2022-10-09 05:07 | NUR ---
PENDING ADMISSION FOR TELE
--- NOTE | 2022-10-09 05:40 | NUR ---
MED RECONCILE COMPLETED . COVID SWAB IN LAB
--- NOTE | 2022-10-09 05:46 | NUR ---
FOOD PROVIDED TO PT .
--- NOTE | 2022-10-09 07:17 | NUR ---
Assumed care of patient, report received from previous shift. Pt awaiting possible transfer to [place]. V/S stable.
--- NOTE | 2022-10-09 10:00 | NUR ---
Pt complains of chest pain, Dr. Joshi notified, orders given for morphine IV. Given to pt as per MD orders
[2022-10-09 10:27] LABS: BARBITURATE, URINE NEGATIVE ng/ml (NEG <=200)
[2022-10-09 10:28] LABS: BENZODIAZEPINE, URINE NEGATIVE ng/mL (NEG <=200); CANNABINOID, URINE POSITIVE ng/mL (NEG <=50); COCAINE, URINE NEGATIVE ng/mL (NEG <=300); OPIATE, URINE POSITIVE ng/mL (NEG <=2000); PHENCYCLIDINE SCREEN,URINE NEGATIVE ng/mL (NEG <=25)
--- NOTE | 2022-10-09 10:45 | NUR ---
Pt resting comfortably, awaiting possible transfer to [place]. Pt updated on plan of care and verbalized understanding.
--- NOTE | 2022-10-09 14:00 | NUR ---
Pt c/o chest pain, Dr. Joshi notified, morphine ordered.
[2022-10-09] MEDS ORDERED: MORPHINE SULFATE 4 MG/ML SYR IVP SCH (14:25)
--- NOTE | 2022-10-09 14:30 | NUR ---
Pt resting comfortably, awaiting possible transfer to [place]. Pt updated on plan of care and verbalized understanding.
--- NOTE | 2022-10-09 16:55 | NUR ---
DR. OLVERA AT BEDSIDE.
--- NOTE | 2022-10-09 19:23 | NUR ---
Pt report given to Alexandra. Transfer of care at this time.
--- NOTE | 2022-10-09 19:46 | NUR ---
Patient will be admitted to care of ELISSA. Admited to TELE. Will go to [id number]. Belongings list completed. Report Kiara LINDO.
[2022-10-09 20:00] VITALS: BP 123/87
--- NOTE | 2022-10-09 20:08 | NUR ---
The patient's care was reviewed and supervised by Naida Briceno RN, RN.
[2022-10-09] MEDS: MORPHINE SULFATE 4 MG/ML SYR IVP PRN (21:38)
[2022-10-10] VITALS: BP 122/96
[2022-10-10] MEDS: MORPHINE SULFATE 4 MG/ML SYR IVP PRN ×4 (02:11→22:41)
[2022-10-10] MEDS ORDERED: ECOTRIN 81 MG TABEC PO ONE (02:30)
[2022-10-10] MEDS ORDERED: ASPIRIN 81 MG TAB.CHEW ONE (03:19)
--- NOTE | 2022-10-10 03:40 | NUR ---
WAS ENDORSED PATIENT FROM REGISTRY (ANA LUISA). NO NOTED NEEDS AT THIS TIME, WE ABLE TO TOLERATED MEDICATION. [id number]
[2022-10-10 04:00] VITALS: BP 123/87
[2022-10-10] MEDS: LEVOTHYROXINE 0.05 MG TAB PO SCH (06:11)
[2022-10-10 07:03] LABS: ANION GAP 12.7 (8-16); BASOPHILS # (AUTO) 0.1 K/uL (0.00-0.22); CARBON DIOXIDE 22.1 mmol/L (21-32); CREATININE 0.9 mg/dL (0.6-1.3); EOSINOPHILS # (AUTO) 0.5 K/uL (0-0.4); EOSINOPHILS % (AUTO) 4.6 % (0.0-4.0); LYMPHOCYTES # (AUTO) 2.8 K/uL (2.0-11.5); MEAN CORPUSCULAR HEMOGLOBIN 23 pg (27-31); MEAN CORPUSCULAR HGB CONC 32 g/dL (33-37); MEAN CORPUSCULAR VOLUME 72.8 fL (80-94); MONOCYTES # (AUTO) 0.9 K/uL (0.8-1.0); MONOCYTES % (AUTO) 8.8 % (1.7-9.3); NEUTROPHILS % (AUTO) 58.6 % (42.2-75.2); PLATELET COUNT (AUTO) 351 K/uL (140-450); POTASSIUM 3.8 mmol/L (3.5-5.1); RED BLOOD CELL COUNT(AUTO) 5.23 MIL/uL (4.20-6.10); WHITE BLOOD COUNT (AUTO) 10.2 K/uL (4.8-10.8)
--- NOTE | 2022-10-10 07:09 | NUR ---
ENDORSED PATIENT TO FREEMAN RN, PATIENT WAS STABLE DURING SHIFT REPORT. [id number]
[2022-10-10] MEDS ORDERED: BUDESONIDE 0.5 MG/2 ML NEBU INH SCH (07:30)
--- NOTE | 2022-10-10 07:56 | NUR ---
10/10/2022 0757: RECIEVED PT FROM DAGO GALDAMEZ. PT AWAKE IN BED. U/S AT BEDSIDE. NO C/O PAIN. NO ACUTE DISTRESS NOTED AT THIS TIME. [id number].
[2022-10-10 08:00] VITALS: BP 121/69
[2022-10-10] MEDS: FUROSEMIDE 40 MG/4 ML VIAL IVP SCH (09:44)
[2022-10-10] MEDS: APIXABAN 2.5 MG TAB PO SCH ×2 (09:45→20:26)
[2022-10-10] MEDS: POTASSIUM CHLORIDE 10 MEQ TABER PO SCH (09:46)
[2022-10-10] MEDS: lisinopriL 5 MG TAB PO SCH (09:48)
[2022-10-10] MEDS: METOPROLOL 25 MG TAB PO SCH ×2 (09:48→20:26)
[2022-10-10 12:00] VITALS: BP 104/63
[2022-10-10 16:00] VITALS: BP 120/74
[2022-10-10] MEDS: ATORVASTATIN 20 MG TAB PO SCH (17:12)
--- NOTE | 2022-10-10 18:28 | NUR ---
10/10/2022 11:40 : TEXTED DR. GARCIA D/T PT C/O CP AND SOB. MORPHINE 4MG GIVEN, 02 2L N/C ADMINISTERED. STAT [address] GARCIA. RFERED TO DR. OLVERA. [id number].
--- NOTE | 2022-10-10 18:30 | NUR ---
10/10/2022 12:38 : TEXTED DR. OLVERA [address] GARCIA. SINCE NO CHANGE FROM PREVIOUS EKG NO FURTHER TX ORDERED. [id number].
--- NOTE | 2022-10-10 19:08 | NUR ---
REPORT OFF TO BELKIS LINDO. PT RESTING IN BED NO C/O PAIN. NO ACUTE DISTRESS NOTED AT THIS TIME. [id number].
--- NOTE | 2022-10-10 19:15 | NUR ---
RECEIVED PT IN BED, AWAKE, ALERT AND ORIENTED X 4. DENIES PAIN AT THIS TIME. DENIES SHORTNESS OF BREATH. SKIN WARM AND DRY TO TOUCH. BED IN THE LOWEST AND LOCKED POSITION FOR SAFETY, CALL LIGHT IN REACH.
[2022-10-10 20:00] VITALS: BP 102/80
[2022-10-11] VITALS: BP 104/69
[2022-10-11] MEDS: MORPHINE SULFATE 4 MG/ML SYR IVP PRN ×4 (02:41→20:57)
[2022-10-11 04:00] VITALS: BP 98/66
[2022-10-11] MEDS: LEVOTHYROXINE 0.05 MG TAB PO SCH (05:38)
--- NOTE | 2022-10-11 06:37 | NUR ---
PAIN MEDICATION GIVEN ORDERED. ALL NEEDS ATTENDED TO. SAFETY PRECAUTIONS MAINTAINED DURING TH SHIFT. CALL LIGHT IN REACH.
[2022-10-11 08:00] VITALS: BP 112/67
--- NOTE | 2022-10-11 09:18 | NUR ---
PATIENT HAS BEEN SCREENED AND CATEGORIZED LOW NUTRITION RISK. PATIENT WILL BE SEEN WITHIN 7 DAYS OF ADMISSION. 10/09/22-10/16/[address]
[2022-10-11] MEDS: METOPROLOL 25 MG TAB PO SCH (10:04)
[2022-10-11] MEDS: APIXABAN 2.5 MG TAB PO SCH ×2 (10:07→20:53)
[2022-10-11] MEDS: FUROSEMIDE 40 MG/4 ML VIAL IVP SCH (10:09)
[2022-10-11] MEDS: POTASSIUM CHLORIDE 10 MEQ TABER PO SCH (10:11)
[2022-10-11] MEDS: lisinopriL 5 MG TAB PO SCH (10:11)
[2022-10-11 12:00] VITALS: BP 109/57
[2022-10-11 16:00] VITALS: BP 131/66
[2022-10-11] MEDS: ATORVASTATIN 20 MG TAB PO SCH (17:11)
--- NOTE | 2022-10-11 19:32 | NUR ---
ENDORSE PATIENT IN STABLE CONDITION TO PM SHIFT NURSE WHILE PATIENT REST IN BED, PIV RAC 20G SALINE LOCK. STOOL FOR C.DIFF COLLECTED
[2022-10-11 20:00] VITALS: BP 117/77
--- NOTE | 2022-10-11 20:57 | NUR ---
PT COMPLAINTS OF CHEST PAIN 05/16, PAIN MEDICATION MORPHINE ADMINISTERED ORDER.
[2022-10-12] VITALS: BP 130/78
[2022-10-12] MEDS: MORPHINE SULFATE 4 MG/ML SYR IVP PRN ×2 (02:12→09:49)
--- NOTE | 2022-10-12 02:12 | NUR ---
PT COMPLAINTS OF CHEST PAIN OF 9/10, PAIN MEDICATION MORPHINE ADMINISTERED ORDER.
--- NOTE | 2022-10-12 03:12 | NUR ---
PT SLEEPING SOUNDLY.
[2022-10-12 04:00] VITALS: BP 124/78
[2022-10-12] MEDS: LEVOTHYROXINE 0.05 MG TAB PO SCH (06:37)
[2022-10-12 08:00] VITALS: BP 114/86
[2022-10-12] MEDS: FUROSEMIDE 40 MG/4 ML VIAL IVP SCH (09:35)
[2022-10-12] MEDS: ECOTRIN 81 MG TABEC PO SCH (09:39)
[2022-10-12] MEDS: METOPROLOL SUCCINATE 50 MG TABER PO SCH (09:40)
[2022-10-12] MEDS: lisinopriL 5 MG TAB PO SCH (09:41)
[2022-10-12] MEDS: POTASSIUM CHLORIDE 10 MEQ TABER PO SCH (09:42)
[2022-10-12] MEDS: APIXABAN 2.5 MG TAB PO SCH ×2 (09:46→20:48)
[2022-10-12] MEDS: HYDROcodone/APAP 5/325 MG 1 TAB TAB PO PRN ×2 (14:31→23:30)
--- NOTE | 2022-10-12 15:49 | NUR ---
DC PLANNING PT IS A READMISSION, PT DC'D ON 10/07/22. SW MET WITH PT AT BEDSIDE TO COMPLETE ASSESSMENT. PT ALERT AND ORIENTED AND ABLE TO PROVIDE ALL OF HIS OWN INFORMATION. PT REPORTS RENTING A ROOM IN A TWO-STORY HOME AT THE ADDRESS LISTED ON FILE. PT IDENTIFIED SHERIE PALAFOX, EMERGENCY CONTACT AND DECLINED TO ADD AN ADDITIONAL EC. PT REPORTS LAST VISIT WITH PCP 2 MONTHS AGO. PT REPORTS MEDICATION COMPLIANCE AND REPORTS RECEIVING MEDICATION FROM [facility] ON WILL IN [place], WHEN NEEDED. PT REPORTS UTILIZING FWW TO AMBULATE, PT REPORTS COMPLETING ADL'S INDEPENDENTLY. PT REPORTS MENTAL HEALTH HX OF BIPOLAR DO WHICH HE REPORTS IS SELF MANAGED AND WELL MANAGED. SW OFFERED TO PROVIDE PT WITH MENTAL HEALTH RESOURCES WHICH PT DECLINED. PT DENIES SUBSTANCE USE DESPITE TESTING POSITIVE FOR OPIATES AND AMPHETAMINES AT ADMISSION. PT DECLINED SUBSTANCE USE RESOURCES OFFERED BY [employer]. PT REPORTS HX OF TYPE 2 DIABETES WHICH HE REPORTS IS WELL MANAGED. PT DENIES HX OF DIALYSIS TX, HH SERVICES, SNF PLACEMENT. PT REPORTS DC PLAN IS TO RETURN HOME WIHT HIS GF PROVIDING TRANSPORTATION WHEN MEDICALLY STABLE. SW INQUIRED ON RESOURCES NEEDED, PT DECLINED.
[2022-10-12 16:00] VITALS: BP 104/94
[2022-10-12] MEDS: ATORVASTATIN 20 MG TAB PO SCH (17:00)
--- NOTE | 2022-10-12 19:18 | NUR ---
ENDORSE PATIENT IN STABLE CONDITION TO PM SHIFT NURSE WHILE PATIENT REST IN BED, PIV RAC 20G SALINE LOCK. PATIENT DOWN GRADE TO MED/SURG NOW
--- NOTE | 2022-10-12 19:20 | NUR ---
RECEIVED REPORT FROM DAY SHIFT RN FOR CONTINUITY OF CARE. PT IS RESTING IN BED. PT NOT IN ANY DISTRESS. PT HAS RIGHT AC SALINE LOCK. POC OF CARE DISCUSSED. WILL CONTINUE TO MONITOR THE PT.
[2022-10-12 20:00] VITALS: BP 114/70
--- NOTE | 2022-10-12 20:48 | NUR ---
SCHEDULE MEDICATIONS GIVEN. NO ADVERSE REACTION NOTED. WILL CONTINUE TO MONITOR THE PT.
--- NOTE | 2022-10-13 01:56 | NUR ---
PT SLEEPING IN BED NOT IN ANY DISTRESS. BREATHING EVEN AND UNLABORED. CALL LIGHT WITHIN REACH.
[2022-10-13 04:00] VITALS: BP 105/69
--- NOTE | 2022-10-13 05:15 | NUR ---
CHECKED ON PT. PT IS SLEEPING COMFORTABLE IN BED. PT IS NOT IN ANY DISTRESS. BREATHING EVEN AND UNLABORED. WILL CONTINUE TO MONITOR THE PT.
[2022-10-13] MEDS: LEVOTHYROXINE 0.05 MG TAB PO SCH (05:43)
--- NOTE | 2022-10-13 07:07 | NUR ---
ENDORSED PT TO DAY SHIFT RN FOR CONTINUITY OF CARE. PT IS STABLE.
--- NOTE | 2022-10-13 07:30 | NUR ---
recieved the patient from shift production supervisor nurse,patient is verbally active,oriented.all safety mesures in place.will continue to monitor.
--- NOTE | 2022-10-13 07:30 | NUR ---
RECIEVED PATIENT FROM WOOD MILL SUPERVISOR NURSE.PATIENT IS VERBALLY ACTIVE.ALL SAFETY MEASURES IN PLACE.WILL CONTINUE TO MONITOR.
[2022-10-13] MEDS: FUROSEMIDE 40 MG/4 ML VIAL IVP SCH (08:32)
[2022-10-13] MEDS: METOPROLOL SUCCINATE 50 MG TABER PO SCH (08:32)
[2022-10-13] MEDS: ECOTRIN 81 MG TABEC PO SCH (08:33)
[2022-10-13] MEDS: lisinopriL 5 MG TAB PO SCH (08:33)
[2022-10-13] MEDS: APIXABAN 2.5 MG TAB PO SCH (08:34)
[2022-10-13] MEDS: POTASSIUM CHLORIDE 10 MEQ TABER PO SCH (08:35)
[2022-10-13] MEDS: HYDROcodone/APAP 5/325 MG 1 TAB TAB PO PRN ×2 (08:36→14:45)
[2022-10-13] MEDS ORDERED: LISI5TAB24 PO (09:17)
[2022-10-13] MEDS ORDERED: METO50TE2 PO (09:17)
[2022-10-13] MEDS ORDERED: ACETAMINOPHEN 325 MG TAB PO PRN (10:55)
[2022-10-13] MEDS ORDERED: VANC125C5 PO (11:02)
--- NOTE | 2022-10-13 11:11 | NUR ---
PATIENT COMPLAINS OF PAIN,NOT WANT TO BE DISCHARGED.NOTIFIED THE DOCTOR.PAIN MEDICATED WITH PRN ORDERS.
[2022-10-13 12:00] VITALS: BP 105/70
[2022-10-13 13:44] VITALS: BP 127/81
--- NOTE | 2022-10-13 16:32 | NUR ---
DISCHARGE ORDERS RECIEVED,TALKED TO THE MD REGARDING THE PATIENT UNWILLINGNESS TO BE DISCHARGED.ALL DISCHARGE MEDICATIONS ARE UPDATED.ADMINISTERED PAIN MEDICATIONS PER ORDER.TALKED TO THE WHEN SHE CAME BEDSIDE.DISCUSSED AND ADVISED DISCHARGE INSTRUUCTIONS.TRIED TO CALL THE MD AGAIN.I GAVE THE DOCTORS NUMBER TO THE .THEY RESPONDED WILLINGNESS TO DISCHARGE.ID BANDS REMOVED.IV REMOVED.PATIENT IS STABLE.
== END 2022-10-13 16:35 | disposition home or self-care (01) | DRG 198 ==
LOC: MED 01:39 → MTU 17:29
DX: R07.89 Other chest pain (principal); I25.10 Atherosclerotic heart disease of native coronary artery without angina pectoris; I50.23 Acute on chronic systolic (congestive) heart failure; E44.1 Mild protein-calorie malnutrition; I42.0 Dilated cardiomyopathy; Z79.01 Long term (current) use of anticoagulants; I11.0 Hypertensive heart disease with heart failure; A08.4 Viral intestinal infection, unspecified; F15.10 Other stimulant abuse, uncomplicated; E03.9 Hypothyroidism, unspecified; Z20.822 Contact with and (suspected) exposure to COVID-19; Z95.1 Presence of aortocoronary bypass graft; Z79.82 Long term (current) use of aspirin; Z79.899 Other long term (current) drug therapy; Z79.891 Long term (current) use of opiate analgesic; Z86.711 Personal history of pulmonary embolism; Z68.34 Body mass index [BMI] 34.0-34.9, adult
CPT/HCPCS: 36415; 71045; 71275; 74150; 80048; 80053; 80305; 83880; 84484; 85025; 85379; 87045; 87070; 87081; 89055; 93005; 94640; 96374; 96375; 96376; 99285; J1885; J1940; J2270; J7613; Q0092; Q9967